=== PATIENT | male | born 1965 | race Caucasian/White ===

== ENCOUNTER 2022-12-04 00:01 | Emergency (ER) | payer MEDICAID, OTHER ==
[~2022-12-04] VITALS: Ht 170.2 cm; Wt 93.0 kg
--- NOTE | 2022-12-04 00:10 | NUR ---
BIBS C/O SINUS CONGESTION x 2 WEEKS, 97% O2SAT ON RA. PLACED ON BED COMFORTABLY, IN NAD.
[2022-12-04] MEDS ORDERED: MOMETASONE FUROATE NASAL SUSP 17 GM BOTTLE SCH (00:30)
[2022-12-04] MEDS ORDERED: OXYMETAZOLINE HCL NASAL SPRAY 30 ML BOTTLE NS ONE ×2 (00:30→01:00)
--- NOTE | 2022-12-04 00:30 | NUR ---
Patient discharged to home in stable condition. Written and verbal after care instructions given. Patient verbalizes understanding of instruction.
[2022-12-04 00:43] VITALS: BP 127/76
== END 2022-12-04 00:32 | disposition home or self-care (01) ==
LOC: ER 00:04
DX: F41.9 Anxiety disorder, unspecified (principal); R09.81 Nasal congestion; Z88.8 Allergy status to other drugs, medicaments and biological substances